=== PATIENT | female | born 1990 | race Caucasian/White ===

== ENCOUNTER → 2023-04-14 17:14 | Outpatient (REF) | payer OTHER, SELFPAY | LOC: PNTC 17:14 | PROVIDERS: ATTENDING PHYSICIAN Obstetrics & Gynecology | DX: O34.219 Maternal care for unspecified type scar from previous cesarean delivery (principal); O43.219 Placenta accreta, unspecified trimester | CPT/HCPCS: 76816; 93976 ==

== ENCOUNTER → 2023-05-24 16:26 | Outpatient (REF) | payer OTHER, SELFPAY | LOC: PNTC 16:26 | PROVIDERS: ATTENDING PHYSICIAN Obstetrics & Gynecology | DX: O34.219 Maternal care for unspecified type scar from previous cesarean delivery (principal) | CPT/HCPCS: 76816 ==

== ENCOUNTER 2023-07-11 05:18 | Inpatient (IN) | payer OTHER, SELFPAY ==
[2023-07-11 05:28] VITALS: BMI 32.3
[2023-07-11 05:35] VITALS: BP 119/84
[2023-07-11 05:46] LABS: Hematocrit 31.5 % (37.0-47.0); Hemoglobin 10.5 g/dL (12.0-16.0); Mean Corp Hgb Conc. 33.3 g/dL (33.0-37.0); Mean Corpuscular Hgb 26.9 pg (27.0-31.0); Mean Corpuscular Volume 80.6 fL (81.0-99.0); Mean Platelet Volume 12.6 fL (7.4-10.4); Platelet Count 186 10^3/uL (130-400); Red Blood Cell Count 3.91 10^6/uL (4.20-5.40); White Blood Cell Count 12.5 10^3/uL (4.8-10.8)
[2023-07-11] MEDS: BICITRA 30 ML PO (07:02)
[2023-07-11] MEDS: TYLENOL 1000 MG PO (07:02)
[2023-07-11] MEDS: ANCEF 10 IV (07:05)
[2023-07-11] MEDS: MORPHINE SULFATE 4 MG IV ×2 (09:16→11:30)
[2023-07-11] MEDS: PITOCIN 30 UNITS/NSS 500 ML IV (13:09)
[2023-07-11] MEDS: TORADOL 15 MG IV ×2 (13:54→19:37)
[2023-07-11] MEDS: MYLICON 80 MG PO (19:37)
[2023-07-12] MEDS: TORADOL 15 MG IV ×2 (01:41→07:49)
[2023-07-12] MEDS: MYLICON 80 MG PO (03:58)
[2023-07-12 04:56] LABS: Hematocrit 25.4 % (37.0-47.0); Hemoglobin 8.4 g/dL (12.0-16.0); Mean Corp Hgb Conc. 33.1 g/dL (33.0-37.0); Mean Corpuscular Hgb 26.8 pg (27.0-31.0); Mean Corpuscular Volume 80.9 fL (81.0-99.0); Platelet Count 161 10^3/uL (130-400); Red Blood Cell Count 3.14 10^6/uL (4.20-5.40); Red Cell Dist. Width 14.1 % (11.5-14.5); White Blood Cell Count 16.5 10^3/uL (4.8-10.8)
--- NOTE | 2023-07-12 07:39 | W.PN.ANS.POP ---
Anesthesia Post Operative
- Anesthesia Post Op Note
Vital Signs Stable-See Nursing Note: Yes
Airway Patent: Yes
Adequate Pain Control: Yes
Change in Mental Status: No
Current Postoperative Nausea & Vomiting: No
Anesthesia Complications: No
General Anesthetic Recall: No
Unplanned Admission: No
Post Op Hydration Adequate: Yes
- -
patient resting comfortably in bed. No complaints at this time.
[2023-07-12] MEDS: PRENATAL PLUS 1 TABLET PO (07:49)
[2023-07-12] MEDS: TYLENOL 650 MG PO ×2 (14:26→20:37)
[2023-07-12] MEDS: MOTRIN 600 MG PO ×2 (14:26→20:37)
[2023-07-12 16:24] LABS: Syphilis/T. pallidum Ab Reflex Negative (Negative)
[2023-07-12] MEDS: FEOSOL 325 MG PO (20:37)
[2023-07-13] MEDS: MOTRIN 600 MG PO (05:50)
[2023-07-13] MEDS: TYLENOL 650 MG PO (05:50)
[2023-07-13] MEDS: SENOKOT-S 1 TABLET PO (08:06)
[2023-07-13] MEDS: FEOSOL 325 MG PO (08:06)
[2023-07-13] MEDS: PRENATAL PLUS 1 TABLET PO (08:06)
--- NOTE | 2023-07-13 09:34 | W.DS.TRANS ---
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
-
Discharge Instructions:
Discharge Diagnosis/Procedures term , delivered; s/p ERLTCS; anemia
Instructions:
Stand-Alone Forms: LDRP Delivery
Changes to Home Medications: No
Discharge Medications:
DC Medications w/original date entered in [facility]
#2 1 tab PO DAILY Supplement 08/15/21
acetaminophen 325 mg tablet 650 mg (2 x 325 mg) PO Q4HPRN PRN mild pain #0 tabs 07/13/23
ferrous sulfate 325 mg (65 mg iron) tablet (FeroSul) 325 mg PO BID #0 tabs 07/13/23
ibuprofen 600 mg tablet 600 mg PO Q6HPRN PRN cramps #60 tabs 07/13/23
oxycodone 5 mg tablet 5 mg PO Q4H PRN severe pain #5 tabs 07/13/23
sennosides 8.6 mg-docusate sodium 50 mg tablet (Stool Softener-Stimulant Laxative) 1 tab PO DAILYPRN PRN constipation #0 tabs 07/13/23
Home Medication Changes
Pending Results: No
Total time spent discharging patient (in min): 20
[2023-07-13] MEDS: M-M-R II 0.5 ML SC (10:28)
== END 2023-07-13 10:48 | disposition home or self-care (01) | DRG 788 ==
LOC: LDRP 05:18
PROVIDERS: ADMITTING PHYSICIAN Obstetrics & Gynecology
PROC: 10D00Z1 Extraction of Products of Conception, Low, Open Approach (ICD-10-PCS; 2023-07-11)
DX: O34.211 Maternal care for low transverse scar from previous cesarean delivery (principal); O99.02 Anemia complicating childbirth; Z37.0 Single live birth; Z3A.39 39 weeks gestation of pregnancy
CPT/HCPCS: 36415; 85027; 86780; 86850; 86900; 86901; 87491; 87591; 90707